=== PATIENT | female | born 1990 | race Two or more races ===

== ENCOUNTER 2018-11-12 11:38 | Emergency (ER) | payer OTHER ==
[2018-11-12] MEDS ORDERED: ONDANSETRON DISINTEGRATING 4 MG TAB PO ONE (12:09)
--- NOTE | 2018-11-12 12:11 | EDPHY ---
H & P Time Seen by Provider: 11/12/18 11:49 HPI/ROS: CHIEF COMPLAINT: Nausea and vomiting History by patient HISTORY OF PRESENT ILLNESS: 27-year-old woman presents complaining of 24 hr of nausea and vomiting. It has been associated with a little bit of watery diarrhea. She developed a rash on her chest 2 weeks ago which was initially if she but the itching is has resolved all the lesions have not completely resolved. She denies any fever but has had some cold sweats. She denies any associated abdominal pain. She had some dysuria several days ago but this has resolved. She denies any low back pain. She denies any frequency but has chronic urgency since she had her child. She says she was vomiting up both fluids and solid foods since yesterday evening. She vomited up her gabapentin this morning. She says she did a home test that was negative. She has an IUD in place. She denies any ill contacts. 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 REVIEW OF SYSTEMS: As in HPI, and all other systems reviewed and are negative Smoking Status: Never smoked Physical Exam: General Appearance: Alert, nontoxic-appearing Head: normocephalic, atraumatic Eyes: Pupils equal and round, reactive to light, no pallor or injection. Mouth: Mucous membranes moist. Oropharynx clear Neck: No bony tenderness, full range of motion Respiratory: Normal, effort, lungs are clear to auscultation. No wheezes, rales or rhonchi. Cardiovascular: Regular rate and rhythm. S1, S2, no murmurs, gallops or rubs appreciated Gastrointestinal: Abdomen is soft and nontender, no masses, bowel sounds normal. Back: No CVA tenderness, no bony tenderness Neurological: Awake, alert and oriented x 3, cranial nerves 2-12 intact, no pronator drift, normal gait, Skin: Warm and dry, no rashes. Musculoskeletal: No deformities or tenderness. Extremities: full range of motion, no edema, DP2+ bilat Psychiatric: Patient has normal affect, there is no agitation. Constitutional: Initial Vital Signs Temperature (C) 37.0 C 11/12/18 11:54 Heart Rate 60 11/12/18 11:54 Respiratory Rate 16 11/12/18 11:54 Blood Pressure 118/73 11/12/18 11:54 O2 Sat (%) 96 01/23/19 11:54 O2 Delivery Mode Room Air Allergies/Adverse Reactions: No Known Allergies Allergy (Unverified 11/12/18 11:52) Home Medications: Medication Instructions Recorded Unknown 12/01/11 Gabapentin [Gabapentin 800 mg] 11/12/18 Ondansetron Odt [Zofran Odt 4 mg 4 mg PO Q4 PRN #12 tab 11/12/18 (*)] Venlafaxine Xr [Effexor Xr 75MG 11/12/18 (*)] risperiDONE [Risperidone] 11/12/18 MDM/Departure - MDM Medications Given: Discontinued Medications Ondansetron HCl (Zofran Odt) 4 mg PO EDNOW ONE Stop: 11/12/18 12:10 Last Admin: 11/12/18 12:15 Dose: 4 mg ED Course/Re-evaluation: 27-year-old woman presents with nausea and vomiting and diarrhea but no abdominal pain. Patient is nontoxic-appearing here with evidence of only mild dehydration. She was given oral Zofran and was able to tolerate oral fluids after that without difficulty. Urinalysis showed no evidence of infection. Patient is not . We discussed home care and return precautions the patient will be discharged home with Zofran for symptomatic relief. - Depart Disposition: Home, Routine, Self-Care Clinical Impression: Nausea and vomiting Qualifiers: Vomiting type: unspecified Vomiting Intractability: non-intractable Qualified Code(s): R11.2 - Nausea with vomiting, unspecified Condition: Good Instructions: Acute Nausea and Vomiting (ED) Additional Instructions: You were seen by Dr. Aracelis Melgoza today. There is no evidence of urinary tract infection today. You may take Zofran as needed for nausea and vomiting. Make sure to take plenty of fluids. Return for any worsening or new concerns, including but not limited to inability to take oral fluids or medications, abdominal pain or other worsening.. Prescriptions: Ondansetron Odt [Zofran Odt 4 mg (*)] 4 mg PO Q4 PRN #12 tab PRN Reason: Nausea and vomiting Referrals: Zara Reyna MD [Primary Care Provider] - As per Instructions
[2018-11-12 13:19] VITALS: BP 115/74
== END 2018-11-12 13:18 | disposition home or self-care (01) ==
LOC: CED 11:38
DX: R11.2 Nausea with vomiting, unspecified (principal); R19.7 Diarrhea, unspecified
CPT/HCPCS: 99283-ER

== ENCOUNTER 2019-03-19 09:23 | Inpatient (IN) | payer OTHER ==
--- NOTE | 2019-03-19 10:03 | EDPHY ---
H & P Stated Complaint: sternum pain, left hip pain, chills Time Seen by Provider: 03/19/19 09:26 HPI/ROS: CHIEF COMPLAINT: Body aches, headache, chills, epigastric pain, hip pain HISTORY OF PRESENT ILLNESS: This is a 28-year-old female with no significant past medical history who presents reporting that 4 days ago she developed body aches, chills, and headache. She began taking ibuprofen 600 mg every 8 hr. 3 days ago she develops severe epigastric discomfort. Reports that she is unable to lay down flat secondary to severe pain. Hurts worse with deep inspiration. No nausea or vomiting. This morning, she noted pain along her lateral left hip radiating into the buttock and just down the side of the thigh. No lower back pain. No numbness or tingling in the leg. Patient has had no cold symptoms, cough, runny nose, or chest pain. She denies any diarrhea. No history of abdominal surgeries. No distension. No palpitations, lightheadedness, or dizziness. No chest discomfort, indicates that this severe pain is in the epigastric area. She has had frequency of urination with small volumes only. No dysuria. No hematuria. Denies any hip or pelvis trauma. REVIEW OF SYSTEMS: A comprehensive 10 system review of systems was reviewed and is otherwise negative aside from elements mentioned in the history of present illness and medical decision making. PAST MEDICAL HISTORY: Depression. Restless leg. Patient takes Effexor as well as gabapentin. Has a Mirena in place. LMP was 3 weeks ago. SOCIAL HISTORY: Occasional alcohol con nonsmoker, no IV drug use. Travel to and from [place] just prior to the onset of the symptoms. VITAL SIGNS Reviewed by me. 37.3, heart rate 111 GENERAL: Well-developed, well-nourished, sitting upright. Uncomfortable when she lays back. Slight limp secondary to hip pain. HEENT: Atraumatic. Eyes: No icterus, no injection. Mouth: moist mucous membranes. No erythema or lesions. Neck: supple with no adenopathy. LUNGS: Clear to auscultation bilaterally, no wheezes, rhonchi or rales. CARDIAC: Regular rate and rhythm, no rubs, murmurs or gallops. CHEST: No chest wall tenderness. No tenderness along the costochondral margins. No rash. ABDOMEN: Soft, significant epigastric and right upper quadrant tenderness to palpation. No distension. Normal bowel sounds. BACK: No CVA tenderness. No lumbar spine tenderness to palpation. EXTREMITIES: Faint ecchymosis at the right buttock. Patient has tenderness to palpation across the lateral hip and SI area. Pain with internal and external rotation at the hip. No edema. NEURO: Alert and oriented, grossly nonfocal. SKIN: Warm and dry, no rash. PSYCHIATRIC: Normal mentation, no agitation. - Personal History LMP (Females 10-55): Extended Cycle BCP/Inj - Medical/Surgical History Hx Asthma: No Hx Chronic Respiratory Disease: No Hx Diabetes: No Hx Cardiac Disease: No Hx Renal Disease: No Hx Cirrhosis: No Hx Alcoholism: No Hx HIV/AIDS: No Hx Splenectomy or Spleen Trauma: No Other PMH: tonsillectomy, , eustachian tubes, restless leg syndrome - Social History Smoking Status: Never smoked Constitutional: Initial Vital Signs Temperature (C) 37.3 C 03/19/19 09:36 Heart Rate 111 H 03/19/19 09:36 Respiratory Rate 18 03/19/19 09:36 Blood Pressure 130/76 H 03/19/19 09:36 O2 Sat (%) 95 03/19/19 09:36 O2 Delivery Mode Room Air Allergies/Adverse Reactions: No Known Allergies Allergy (Unverified 03/19/19 09:38) Home Medications: Medication Instructions Recorded Gabapentin [Gabapentin 800 mg] 11/12/18 Venlafaxine Xr [Effexor Xr 75MG 11/12/18 (*)] Mirena 03/19/19 Medical Decision Making - Diagnostics Imaging Results: Imaging Impressions Chest X-Ray 03/19/19 09:35 Impression: Mild central bronchial thickening, otherwise, unremarkable study. Imaging: Discussed imaging studies w/ library clerk talking books Radiologist, I viewed and interpreted images myself ED Course/Re-evaluation: 28-year-old female presents to the emergency department with chills, body aches , high epigastric pain and hip pain. Patient is a temperature of 37.3 degrees on arrival. She is tachycardic. IV was placed in the patient received a L normal saline. [place] [address]. Electrolytes largely unremarkable. Urinalysis with 2+ leukocyte esterase and 2+ blood. CT scan of the abdomen pelvis was ordered. Patient's CT demonstrates significant intra-abdominal inflammation which appears to be primarily renal in nature. Patient has a large kidney with inflammatory changes consistent with pyelonephritis. She also has significantly dilated ureter down to the level of the bladder. Appendix is difficult to visualized but does appear to be normal when identified. Gallbladder is normal. No significant change is seen to the right hip. Plan at this point is to admit the patient to the hospital. I am concerned that she is becoming septic secondary to pyelonephritis. There is the possibility that her right hip has been seeded from bacteremia. She has no history of IV drug use. There is no murmur. Overall the patient appears uncomfortable Of note, the patient did have a slightly elevated D-dimer at 575 (cutoff for this machine is 400). Although she reports "sternal pain" on examination the patient has actually indicating very high epigastric, and right upper quadrant pain. It is worse if she lays flat. I believe a pulmonary embolism is less likely. Patient received 1 g of ceftriaxone. Blood cultures were sent. Lactic acid was ordered. Patient will be transferred to [facility] for admission. Course discussed with the hospitalist service, Dr. Paresh Fernandez admitting. Differential Diagnosis: Differential diagnoses for the patient's symptom complex was considered including but not limited to pyelonephritis, kidney stone with infection, appendicitis with ureteral obstruction, septicemia, septic arthritis, reflux. Consult/Admit Bed Type: Dr Froilan Fernandez, [facility] - Data Points Laboratory Results: 03/19/19 03/19/19 03/19/19 10:30 10:17 10:10 POC Sodium 134 mEq/L L mEq/L (135-145) POC Potassium 3.3 mEq/L mEq/L (3.3-5.0) POC Chloride 101.0 mEq/L mEq/L (97-110) POC Total CO2 26 mEq/L mEq/L (22-31) POC BUN 6 mg/dL L mg/dL (7-23) POC Creatinine 0.6 mg/dL mg/dL (0.6-1.0) POC Glucose 105 mg/dL H mg/dL (70-100) POC Calcium 8.8 mg/dL mg/dL (8.5-10.4) POC Total Bilirubin 0.5 mg/dL mg/dL (0.1-1.4) POC GGT 80 IU/L H IU/L (5-65) POC AST 41 IU/L IU/L (14-46) POC ALT 34 IU/L IU/L (9-52) POC Alk Phosphatase 96 IU/L IU/L (38-126) POC Total Protein 6.6 g/dL g/dL (6.3-8.2) POC Albumin 3.6 g/dL g/dL (3.5-5.0) POC Amylase 28 IU/L L IU/L (30-110) Lipase 73 IU/L IU/L (23-300) Urine RBC Urine WBC Ur Epithelial Cells Urine Bacteria 03/19/19 09:55 POC Sodium POC Potassium POC Chloride POC Total CO2 POC BUN POC Creatinine POC Glucose POC Calcium POC Total Bilirubin POC GGT POC AST POC ALT POC Alk Phosphatase POC Total Protein POC Albumin POC Amylase Lipase Urine RBC 1-3 /hpf /hpf (0-3) Urine WBC 10-15 /hpf H /hpf (0-3) Ur Epithelial Cells TRACE /lpf /lpf (NONE-1+) Urine Bacteria 4+ /hpf H /hpf (NONE SEEN) Medications Given: Discontinued Medications Fentanyl (Sublimaze) 75 mcg IVP EDNOW ONE Stop: 03/19/19 10:40 Last Admin: 03/19/19 10:51 Dose: 75 mcg Sodium Chloride (Ns) 1,000 mls @ 0 mls/hr IV ONCE ONE; Wide Open PRN Reason: Protocol Stop: 03/19/19 10:40 Last Admin: 03/19/19 10:47 Dose: 1,000 mls Point of Care Test Results: CBC CBC Collection Date 03/19/19 CBC Collection Time 10:10 WBC 23.15 RBC 4.34 HGB 13.6 HCT 39.7 PLT 136 Neut # 20.04 Neut 86.6 LYMPH # 0.77 LYMPH 3.3 MCV 91.5 Chemistry 03/19/19 03/19/19 10:30 10:17 POC Sodium 134 mEq/L L mEq/L (135-145) POC Potassium 3.3 mEq/L mEq/L (3.3-5.0) POC Chloride 101.0 mEq/L mEq/L (97-110) POC Total CO2 26 mEq/L mEq/L (22-31) POC BUN 6 mg/dL L mg/dL (7-23) POC Creatinine 0.6 mg/dL mg/dL (0.6-1.0) POC Glucose 105 mg/dL H mg/dL (70-100) POC Calcium 8.8 mg/dL mg/dL (8.5-10.4) POC Total Bilirubin 0.5 mg/dL mg/dL (0.1-1.4) POC GGT 80 IU/L H IU/L (5-65) POC AST 41 IU/L IU/L (14-46) POC ALT 34 IU/L IU/L (9-52) POC Alk Phosphatase 96 IU/L IU/L (38-126) POC Total Protein 6.6 g/dL g/dL (6.3-8.2) POC Albumin 3.6 g/dL g/dL (3.5-5.0) POC Amylase 28 IU/L L IU/L (30-110) D-Dimer D-Dimer Collection Date 03/19/19 D-Dimer Collection Time 10:10 D-Dimer (ng/ml) 575 Liver Function Tests LFT Collection Date 03/19/19 LFT Collection Time 10:10 Urine Collection Date 03/19/19 Collection Time 10:00 HCG Results Negative Urine Dip Collection Date 03/19/19 Collection Time 09:57 Specific [place] (1.002-1.030) 1.005 PH (5.0-7.5) 6.0 Leukocytes (Negative) 2+ Nitrites (Negative) Negative Protein (Negative) Negative Glucose (Negative) Negative Ketones (Negative) Negative Urobilnogen (0.2-1.0 EU) 0.2 Bilirubin (Negative) Negative Blood (Negative) 2+ Departure - Departure Condition: Fair Referrals: Zara Reyna MD [Primary Care Provider] - As per Instructions
[2019-03-19] MEDS ORDERED: NS 1,000 ML IV ONE ×3 (10:39→14:30)
[2019-03-19] MEDS ORDERED: fentaNYL 100 MCG/2 ML INJ IVP ONE (10:39)
[2019-03-19] MEDS ORDERED: IOPAMIDOL (ISOVUE-300) 100 ML BTL ONE (11:24)
[2019-03-19] MEDS ORDERED: PANTOPRAZOLE SODIUM 40 MG VIAL IVP ONE (11:52)
[2019-03-19] MEDS ORDERED: HYOSCYAMINE SULFATE 0.125 MG TAB PO ONE (12:11)
[2019-03-19] MEDS ORDERED: MAG HYDROX/AL HYDROX/SIMETH 30 ML UDCUP PO ONE (12:11)
[2019-03-19] MEDS ORDERED: ONDANSETRON 4 MG/2 ML VIAL IVP ONE (12:11)
[2019-03-19] MEDS ORDERED: LIDOCAINE 2% VISCOUS 15 ML UDCUP PO ONE (12:11)
[2019-03-19] MEDS: HYDROmorphONE/DILAUDID 2 MG/ML INJ IVP ONE ×2 (12:22→12:31)
[2019-03-19 12:59] LABS: CREATINE KINASE 104 IU/L (0-156)
[2019-03-19] MEDS ORDERED: IBUPROFEN 600 MG TAB PO ONE (13:01)
[2019-03-19] MEDS ORDERED: ACETAMINOPHEN 500 MG TAB PO ONE (13:01)
[2019-03-19] MEDS ORDERED: IOPAMIDOL (ISOVUE 370) 100 ML BTL IV ONE (13:41)
[2019-03-19] MEDS ORDERED: HYDROmorphONE/DILAUDID 1 MG/ML INJ IVP PRN (14:28)
[2019-03-19] MEDS ORDERED: LORazepam 2 MG/ML INJ IVP PRN (14:28)
--- NOTE | 2019-03-19 14:59 | PDGENHP ---
History and Physical - Chief Complaint abdominal pain - History of Present Illness 28yo F who presents with right flank pain. She first noticed myalgias in her legs 4 days ago. She then developed epigastric and right sided abdominal pain 2- 3 days ago. She has been having intermittent sweats and chills but did not check her temperature at home. Has noticed sensation of inability to completely empty bladder but no dysuria, hematuria, or frequency. She has been nauseated and had one episode of vomiting but no diarrhea. No rashes. Today, she has had some worsening right hip pain that has made it difficult to ambulate. Has had one UTI in the past. No recent antibiotics. Recently travelled back from [place]. Presented to [facility] ED where CT of her abdomen shows severe acute R pyelonephritis with moderate hydronephrosis to level of UPJ with no evidence of obstructing stone. She was meeting sepsis criteria and given 2L IV normal saline , 1g IV ceftriaxone and urine and blood cultures were drawn. Currently her pain is much better controlled after receiving IV dilaudid. History Information - Allergies/Home Medication List Allergies/Adverse Reactions: No Known Allergies Allergy (Unverified 03/19/19 09:38) Home Medications: Gabapentin [Gabapentin 800 mg] 11/12/18 [Last Taken Unknown] Venlafaxine Xr [Effexor Xr 75MG (*)] 11/12/18 [Last Taken Unknown] Mirena 03/19/19 [Last Taken Unknown] I have personally reviewed and updated: family history, medical history, social history, surgical history - Past Medical History Additional medical history: depression, restless legs - Surgical History Additional surgical history: , tonsillectomy - Family History Positive for: non-pertinent - Social History Smoking Status: Never smoked Alcohol Use: Rarely Drug Use: None Additional social history: Lives with mother. Review of Systems Review of Systems: ROS: 10pt was reviewed & negative except for what was stated in HPI & below Physical Exam Physical Exam: Temp Pulse Resp BP Pulse Ox 38.0 C 118 H 22 H 89/50 L 97 03/19/19 14:27 03/19/19 14:27 03/19/19 14:27 03/19/19 14:27 03/19/19 14:27 O2 (L/minute) 2 Constitutional: uncomfortable Eyes: PERRL, anicteric sclera, EOMI Ears, Nose, Mouth, Throat: moist mucous membranes, hearing normal, ears appear normal, no oral mucosal ulcers Cardiovascular: no murmur, rub, or gallop, tachycardia, No edema Respiratory: no respiratory distress, no rales or rhonchi, clear to auscultation Gastrointestinal: normoactive bowel sounds, no palpable masses, tenderness ( epigastric and RUQ), other (no flank tenderness to palpation) Genitourinary: no bladder fullness, no bladder tenderness Skin: warm, normal color, no rashes or abrasions, no fluctuance, no induration, other (no janeway lesions or osler nodes), No mottled Musculoskeletal: full muscle strength, no muscle tenderness, normal joint ROM, no joint effusions Neurologic: AAOx3 Psychiatric: interacting appropriately Lab Data & Imaging Review 03/19/19 10:10 Hct 40.2 % (38.0-47.0) 03/19/19 10:10 ESR 27 MM/HR (0-20) H 03/19/19 10:10 POC Sodium 134 mEq/L (135-145) L 03/19/19 10:17 POC Potassium 3.3 mEq/L (3.3-5.0) 03/19/19 10:17 POC Chloride 101.0 mEq/L (97-110) 03/19/19 10:17 POC Total CO2 26 mEq/L (22-31) 03/19/19 10:17 POC BUN 6 mg/dL (7-23) L 03/19/19 10:17 POC Creatinine 0.6 mg/dL (0.6-1.0) 03/19/19 10:17 POC Glucose 105 mg/dL (70-100) H 03/19/19 10:17 POC Lactic Acid Talon 1.4 mmol/L (0.7-2.1) 03/19/19 12:14 POC Calcium 8.8 mg/dL (8.5-10.4) 03/19/19 10:17 POC Total Bilirubin 0.5 mg/dL (0.1-1.4) 03/19/19 10:30 POC GGT 80 IU/L (5-65) H 03/19/19 10:30 POC AST 41 IU/L (14-46) 03/19/19 10:30 POC ALT 34 IU/L (9-52) 03/19/19 10:30 POC Alk Phosphatase 96 IU/L (38-126) 03/19/19 10:30 Creatine Kinase 104 IU/L (0-156) 03/19/19 10:10 C-Reactive Protein 214.6 mg/L (<10.0) H 03/19/19 10:10 POC Total Protein 6.6 g/dL (6.3-8.2) 03/19/19 10:30 POC Albumin 3.6 g/dL (3.5-5.0) 03/19/19 10:30 POC Amylase 28 IU/L (30-110) L 03/19/19 10:30 Lipase 73 IU/L (23-300) 03/19/19 10:10 Urine RBC 1-3 /hpf (0-3) 03/19/19 09:55 Urine WBC 10-15 /hpf (0-3) H 03/19/19 09:55 Ur Epithelial Cells TRACE /lpf (NONE-1+) 03/19/19 09:55 Urine Bacteria 4+ /hpf (NONE SEEN) H 03/19/19 09:55 Interpretation: CTA chest: no PE, no pneumonia, normal size heart. CT abd/ pelvis: findings per HPI, additionally she has some non-obstructing left nephrolithiasis Assessment & Plan Assessment: 28yo F who presents with right flank pain found to have pyelonephritis and sepsis. Plan: 1. Sepsis 2/2 right sided pyelonephritis - Ceftriaxone 1g IV q24h - Follow urine and blood cultures (drawn at [facility]) - Give additional 1L NS and continue mIVF 2. Moderate right hydronephrosis to UPJ: This is very high up in ureter. Likely d/t inflammation from pyelo. No e/o stone. - D/w urology (did not formally consult); could consider repeat imaging in short duration to ensure resolving but no indication for stent/procedure 3. Right hip pain: Suspect due to inflammation - If persistent or blood cultures return +, recommend imaging to eval for metastatic site of infection 4. Depression: continue home meds VTE ppx: SCDs Code: full Dispo: Admit under observation
[2019-03-19] MEDS: NS 1,000 ML IV SCH ×2 (16:07→23:28)
[2019-03-19] MEDS: oxyCODONE IR 5 MG TAB PO PRN ×3 (18:53→23:24)
[2019-03-19] MEDS: GABAPENTIN 300 MG CAP PO SCH (20:17)
[2019-03-19] MEDS: ONDANSETRON DISINTEGRATING 4 MG TAB PO PRN (22:57)
[2019-03-19] MEDS: LORazepam 0.5 MG TAB PO PRN (22:57)
[2019-03-20] MEDS: ACETAMINOPHEN 325 MG TAB PO PRN ×2 (03:53→20:08)
[2019-03-20 05:59] LABS: PLATELET COUNT 113 10^3/uL (150-400)
[2019-03-20] MEDS: NS 1,000 ML IV SCH (06:59)
[2019-03-20] MEDS: IBUPROFEN 800 MG TAB PO PRN (07:21)
[2019-03-20] MEDS: VENLAFAXINE XR 150 MG CAP PO SCH (08:16)
[2019-03-20] MEDS ORDERED: FUROSEMIDE 20 MG TAB PO ONE (11:55)
--- NOTE | 2019-03-20 13:52 | HOSPPROG ---
Hospitalist Progress Note Assessment/Plan: 28yo F who presents with right flank pain found to have pyelonephritis and sepsis. First encounter, chart reviewed. #Sepsis - E.Coli - Ceftriaxone 1g IV q24h - DC IVF #Bacteremia -E.Coli source #Moderate right hydronephrosis to UPJ: -This is very high up in ureter. Likely d/t inflammation from pyelo. No e/o stone. -consider repeat imaging in short duration to ensure resolving but no indication for stent/procedure #Right hip pain: - Suspect due to inflammation - resolved #Depression: - HX - continue home meds VTE ppx: SCDs Code: full Dispo: Change to inpt status requires further care in hospital setting given bacteremia and need fo supportive care Subjective: Still feels terrible. Really weak and tired. Objective: Vital Signs Temp Pulse Resp BP Pulse Ox 37.3 C 99 16 106/59 L 92 03/20/19 10:54 03/20/19 10:54 03/20/19 10:54 03/20/19 10:54 03/20/19 10:54 Laboratory Results 03/20/19 05:00 03/20/19 05:00 03/19/19 03/20/19 03/21/19 05:59 05:59 05:59 Intake Total 2560 Balance 2560 - Physical Exam Constitutional: appears nourished, not in pain, uncomfortable Eyes: PERRL, anicteric sclera, EOMI Ears, Nose, Mouth, Throat: moist mucous membranes, hearing normal, ears appear normal Cardiovascular: regular rate and rhythym, No JVD, No edema Respiratory: no respiratory distress, no rales or rhonchi, reduced air movement Gastrointestinal: normoactive bowel sounds, No tenderness, No ascites Genitourinary: no bladder fullness Skin: warm, normal color, No mottled Musculoskeletal: normal joint ROM, no joint effusions, generalized weakness Neurologic: AAOx3 Psychiatric: interacting appropriately, not anxious, not encephalopathic ICD10 Worksheet Patient Problems: Problems Problem Status Onset Pyelonephritis Acute - ICD10 Problem Qualifiers (1) Pyelonephritis
--- NOTE | 2019-03-20 14:11 | ASMTCMCOM ---
CM Note CM Note Notes: Reviewed chart, pt admitted for L back pain from pyelonephritis. Pt lives at home with her mother and works, anticipate she will dc home when medically stable. CM available for any changes. DC Plan: Independent Date Signed: 03/20/2019 01:59 PM Electronically Signed By:Colette Parks RN
[2019-03-20] MEDS ORDERED: MAGNESIUM HYDROXIDE 30 ML UDCUP PO PRN (16:13)
[2019-03-20] MEDS ORDERED: LACTULOSE 20 GM/30 ML UDCUP PO PRN (16:13)
[2019-03-20] MEDS ORDERED: POLYETHYLENE GLYCOL 3350 17 GM PKT PO PRN (16:13)
[2019-03-20] MEDS ORDERED: BISACODYL 10 MG SUPP PR PRN (16:13)
--- NOTE | 2019-03-20 16:57 | PDMN ---
Medical Necessity Medical necessity: Change to inpt as of 03/20/19, meets inpt criteria per BOBBIN TRUCKER order and MCG M-160. Sepsis and Other Febrile Illness, without Focal Infection, A-3 days, inpt adm indicated for: bacteremia. 28 y/o presented w/R flank pain, intermittent sweats and chills, inability to completely empty bladder found to have pyelonephritis and sepsis, upgraded to inpt given bacteremia, +E.Coli in blood and urine, and need for further IV ABX's and supportive care, pt still feeling very weak. Moderate R hydronephrosis. Est LOS>2MN.
[2019-03-20] MEDS: ONDANSETRON DISINTEGRATING 4 MG TAB PO PRN (18:06)
[2019-03-20] MEDS: LORazepam 0.5 MG TAB PO PRN (18:32)
[2019-03-20] MEDS: GABAPENTIN 300 MG CAP PO SCH (20:07)
[2019-03-20] MEDS: oxyCODONE IR 5 MG TAB PO PRN (20:07)
[2019-03-20] MEDS: SENNOSIDES/DOCUSATE SODIUM TAB PO SCH (20:07)
[2019-03-21] MEDS: ACETAMINOPHEN 325 MG TAB PO PRN (04:47)
[2019-03-21] MEDS: oxyCODONE IR 5 MG TAB PO PRN (04:47)
[2019-03-21] MEDS: LORazepam 0.5 MG TAB PO PRN (04:48)
[2019-03-21] MEDS: IBUPROFEN 800 MG TAB PO PRN ×2 (07:42→15:46)
[2019-03-21] MEDS: VENLAFAXINE XR 150 MG CAP PO SCH (07:42)
[2019-03-21] MEDS: SENNOSIDES/DOCUSATE SODIUM TAB PO SCH ×2 (07:43→20:45)
[2019-03-21] MEDS: ONDANSETRON 4 MG/2 ML VIAL IVP PRN ×2 (07:46→15:13)
[2019-03-21] MEDS ORDERED: SUMAtriptan 25 MG TAB PO ONE ×2 (09:06→21:20)
--- NOTE | 2019-03-21 09:13 | HOSPPROG ---
Hospitalist Progress Note Assessment/Plan: 28yo F who presents with right flank pain found to have pyelonephritis and sepsis. #Sepsis - resolved - E.Coli - Ceftriaxone 1g IV q24h - DC IVF #ARGUETA - trial imitrex - cont Ibuprofen #Constipation - cont bowel therapy #Nausea - multifactorial - cont antimedics #Bacteremia -E.Coli source - CTX #Moderate right hydronephrosis to UPJ: -This is very high up in ureter. Likely d/t inflammation from pyelo. No e/o stone. -consider repeat imaging in short duration to ensure resolving but no indication for stent/procedure #Right hip pain: - Suspect due to inflammation - resolved #Depression: - HX - continue home meds VTE ppx: SCDs Code: full Dispo: inpt status requires further care in hospital setting given bacteremia and need for supportive care Subjective: Still feels terrible. ARGUETA, nausea. No pain. Tired. Objective: Vital Signs Temp Pulse Resp BP Pulse Ox 37.7 C 112 H 18 106/60 91 L 03/21/19 07:24 03/21/19 07:24 03/21/19 07:24 03/21/19 07:24 03/21/19 07:24 Laboratory Results 03/21/19 04:53 03/20/19 03/21/19 03/22/19 05:59 05:59 05:59 Output Total 200 Balance -200 - Physical Exam Constitutional: not in pain, uncomfortable, No obese Eyes: PERRL, anicteric sclera, EOMI Ears, Nose, Mouth, Throat: moist mucous membranes, hearing normal, ears appear normal Cardiovascular: No JVD, No edema Respiratory: no respiratory distress, reduced air movement Gastrointestinal: No tenderness, No ascites Skin: warm, normal color, No mottled Musculoskeletal: normal joint ROM, no joint effusions, generalized weakness Neurologic: AAOx3 Psychiatric: interacting appropriately, not anxious, not encephalopathic ICD10 Worksheet Patient Problems: Problems Problem Status Onset Pyelonephritis Acute - ICD10 Problem Qualifiers (1) Pyelonephritis
[2019-03-21] MEDS: GABAPENTIN 300 MG CAP PO SCH (20:45)
[2019-03-22] MEDS: IBUPROFEN 800 MG TAB PO PRN (04:24)
[2019-03-22 07:43] VITALS: BP 107/73
[2019-03-22] MEDS: VENLAFAXINE XR 150 MG CAP PO SCH (08:49)
[2019-03-22] MEDS: SENNOSIDES/DOCUSATE SODIUM TAB PO SCH (08:49)
--- NOTE | 2019-03-22 11:12 | ASDISCHSUM ---
Discharge Information Plan Status:Home with No Needs Medically Cleared to Leave:03/22/2019 Discharge Date:03/22/2019 10:22 AM CM D/C Disposition:Home, Routine, Self-Care ADT D/C Disposition:Home, Routine, Self-Care Projected Discharge Date:03/22/2019 10:22 AM Transportation at D/C:Family Discharge Delay Reason: Follow-Up Date:03/22/2019 10:22 AM Discharge Slot: Final Diagnosis:Pyelonephritis Placement Information Patient Contact Information Contact Name:STAIGNACIO Relationship:Mother Address: City:[place] Alternate Phone: State/Zip Code:[place] [address] Email: Financial Information Financial Class:HMO and PPO Plans Primary Plan Desc:[facility] Primary Plan Number:[id number] Secondary Plan Desc: Secondary Plan Number: Assessment Information LACE LACE Length of stay for Answers: 3 days current admission Acuity / Level of Answers: Yes Care: Did the patient have an inpatient admission? Comorbidities - select Answers: Other Notes: pyelonephritis all that apply # of Emergency department Answers: 1-2 visits in the last 6 months Social determinants Answers: Mental health diagnosis (anxiety, depression, pers onality disorders, etc.) Score: 11 Date Signed: 03/22/2019 11:11 AM Electronically Signed By:Aixa Thomas. RN [facility] CM Progress Note CM Note CM Note Notes: Reviewed chart, pt admitted for L back pain from pyelonephritis. Pt lives at home with her mother and works, anticipate she will dc home when medically stable. CM available for any changes. DC Plan: Independent Date Signed: 03/20/2019 01:59 PM Electronically Signed By:oClette Parks RN Case Management Discharge Plan Note Case Management Discharge Discharge Order Complete? Answers: Yes Patient to Obtain Answers: Independently Medications Transportation Arranged Answers: Family/Friends Transport will Pick (Date 03/22/2019 12:00 AM & Time) Family Notified Answers: Yes Notes: by pt Discharge Comments Notes: Pt discharged independently. Pt lives with her mother and is employed. No CM needs noted at this time. Date Signed: 03/22/2019 11:10 AM Electronically Signed By:Aixa Arellano RN Intervention Information
--- NOTE | 2019-03-22 13:38 | GDS ---
[f rep st] DISCHARGE SUMMARY DISCHARGE DIAGNOSES: 1. Sepsis. 2. Bacteremia. 3. Escherichia coli urinary tract infection. 4. Headache. 5. Constipation. 6. Nausea. 7. Moderate right hydronephrosis. 8. Right hip pain. 9. Depression. STUDIES AND PROCEDURES: 1. CT of the abdomen. 2. CT angiography of the chest. PHYSICAL EXAM: GENERAL: The patient is alert. VITAL SIGNS: Afebrile at 37.1, pulse is 80, respira tory rate is 14, blood pressure is 107/73, saturating 94% on room air. I have seen and evaluated the patient on the day of discharge. HOSPITAL COURSE: The patient is a 28-year-old female who presented to the emergency room with compla ints of flank pain. She was evaluated and diagnosed with: 1. Sepsis. During this hospitalization, she was treated for this, and this has resolved. 2. Escherichia coli bacteremia. She received IV Rocephin. 3. E coli urinary tract infection with pyelonephritis. She was treated with IV Rocephin during this hospitalization. She is pansensitive and has been discharged on Levaquin. She will continue 10 mor e days of Levaquin in the outpatient setting. 4. Moderate right hydronephrosis. This is mild and requires no further evaluation at this time. 5. Depression. This is stable. She will continue her home medications. 6. Headache. This has resolved. 7. Constipation. This has resolved. 8. Nausea. This has resolved. DISPOSITION: The patient will be discharged home independently. There are no pending studies. DISCHARGE MEDICATIONS: Please refer to EMR form. I have given the patient a prescription for Levaqu in 750 mg daily, #10. I have not adjusted her other previously prescribed home medications to the be st of my knowledge. Followup will be with her primary care physician. /[id number]/MODL
== END 2019-03-22 10:22 | disposition home or self-care (01) | DRG 872 ==
LOC: CED 09:23 → CEDHOLD 12:25 → F3E 14:22 → OBSVTOIN 03-20 15:39
PROVIDERS: ADMIT Internal Medicine; ATTEND Internal Medicine
DX: A41.51 Sepsis due to Escherichia coli [E. coli] (principal); N12 Tubulo-interstitial nephritis, not specified as acute or chronic; N39.0 Urinary tract infection, site not specified; B96.20 Unspecified Escherichia coli [E. coli] as the cause of diseases classified elsewhere; N13.30 Unspecified hydronephrosis; R51 Headache; K59.00 Constipation, unspecified; F32.9 Major depressive disorder, single episode, unspecified
CPT/HCPCS: 71046-PO; 71275-PO; 74177-PO; 80048-ER; 80076-ER; 81025-ER; 82150-ER; 83605-ER; 85025-QW-ER; 85379-QW-ER; 96361-ER; 96365-ER; 96375-ER; 99285-ER; G0378; J0696; J1170; J2405; J3010; Q9967